=== PATIENT | female | born 1995 | race Caucasian/White ===

== ENCOUNTER 2020-06-26 11:25 | Emergency (ER) | payer OTHER, SELFPAY ==
[2020-06-26 11:36] VITALS: BP 134/81; PULSE 99; RESP 16; TEMP 36.2; O2SAT 100
--- NOTE | 2020-06-26 11:40 | ED.URI ---
HPI - URI/Sore Throat General Chief Complaint: Upper Respiratory Infection Stated Complaint: sore throat Time Seen by Provider: 06/26/20 11:35 Source: patient and RN notes reviewed Mode of arrival: ambulatory Limitations: no limitations History of Present Illness HPI Narrative: 25-year-old female presents to [facility] with complaints of a sore throat x1 week. Patient states it was worse this morning with ear pressure. No treatment prior to arrival. Also states she had swollen lymph nodes. Denies any chest pain or abdominal pain. No shortness of breath, nausea, vomiting or diarrhea. Denies fevers. MD elicited complaint: sore throat Onset (ago): week(s) (1 week, worse today) Consistency: constant Severity: moderate Pain scale (0-10): 7 Exacerbating factors: swallowing and speaking Relieving factors: nothing Related Data Home Medications Medication Instructions Recorded Confirmed norgestimate-ethinyl estradiol 0.25 tablet PO DAILY 06/26/20 06/26/20 [Sprintec (28)] Allergies Allergy/AdvReac Type Severity Reaction Status Date / Time No Known Allergies Allergy Verified 06/26/20 11:37 Review of Systems Review of Systems: All systems reviewed & are unremarkable except as noted in HPI and below Constitutional: Constitutional: Reports no additional constitutional complaints Eyes: Eyes: Reports no additional eye complaints ENT: Reports as per HPI and Reports sore throat Cardiovascular: Cardiovascular: Reports no additional cardiovascular complaints and Denies chest pain Respiratory: Respiratory: Reports no additional respiratory complaints, Denies cough, Denies dyspnea and Denies wheezing Gastrointestinal: Gastrointestinal: Reports no additional gastrointestinal complaints, Denies abdominal pain, Denies nausea and Denies vomiting Musculoskeletal: Musculoskeletal: Reports no additional musculoskeletal complaints Neurologic: Reports system reviewed and no additional complaints, except as documented, Denies dizziness and Denies headache(s) Psychiatric: Psychiatric: Reports no additional psychiatric complaints [facility] Surgical History Surgical History (Updated 06/26/20 @ 11:44 by Marlin Hitchcock) H/O wisdom tooth extraction History of anterior cruciate ligament surgery Social History Social History Gender identity (if verbalized by the patient): Female Comments At the time of my signature, I reviewed and agree with the nursing past medical, surgical, social, and family history. There is no relevant family history pertinent to the patient complaint. Exam Const: General: healthy appearing, no acute distress and alert Nutritional Appearance: well nourished Orientation/consciousness: patient oriented x3 HENMT: Ears: hearing grossly normal bilaterally, external ears normal and TM's normal bilaterally General nose exam: Normal external nose present and Normal nares present Face and sinus: normal facial exam and sinuses nontender Mouth: Yes lip normal Throat: uvula midline, abnormal tonsil (Enlarged +2, erythema noted) bilateral, no peritonsillar masses, postnasal drainage and no uvular edema Eyes: Conjunctivae: conjunctivae normal Pupils: Equal, round and reactive pupils present Neck: Neck: lymphadenopathy (Bilateral cervical chain enlarged) Chest: Chest palpation & inspection: normal inspection of the chest Resp: Effort & Inspection: normal respiratory effort and no use of accessory muscles Auscultation: clear to auscultation bilaterally, no crackles, no rales, no rhonchi and no wheezes Cardio: Rate: regular rate Rhythm: regular rhythm GI: GI Palp: Yes Soft to palpation Skin: General skin exam: normal color Rashes: no rashes Neuro: General: patient oriented x3, moves all extremities and no meningeal signs Speech: normal speech Extrem: General: normal to inspection Course Vital Signs Vital signs: Vital Signs Temperature 97.1 F L
== END 2020-06-26 11:52 | disposition home or self-care (01) ==
PROVIDERS: Emergency Provider Nurse Practitioner
DX: J03.90 Acute tonsillitis, unspecified (principal)
CPT/HCPCS: 87081; 87880; 99213; G0463